=== PATIENT | male | born 1965 | race Caucasian/White ===

== ENCOUNTER 2022-08-01 03:37 | Inpatient (IN) | payer SELFPAY ==
[2022-08-01] MEDS ORDERED: Ondansetron PF 4 MG/2 ML Vial ONE ×2 (04:26→08:41)
[2022-08-01] MEDS ORDERED: Ketorolac Tromethamine 30 MG/ML VIAL ONE (04:26)
[2022-08-01 04:31] LABS: #Basophils 0.1 thou/uL (0.0-0.2); #Monocytes 1.1 thou/uL (0.11-0.59); #Neutrophils 12.7 thou/uL (1.40-6.50); %Basophils 0.3 % (0.0-1.0); %Eosinophils 0.2 % (0.0-10.0); %Monocytes 6.8 % (0.0-10.0); %Neutrophils 81.3 % (42.0-75.0); Hemoglobin 11.2 g/dL (14.0-18.0); Mean Corpuscular HGB CONC 31.5 g/dL (32.0-36.0); Mean Corpuscular Hemoglobin 25.5 pg (27.0-31.0); Mean Corpuscular Volume 80.7 fl (78.0-98.0); Platelet Count 419 10x3/uL (130-400); RBC Distribution Width 14.6 % (11.5-14.5); White Blood Cell (WBC) Count 15.6 10x3/uL (4.8-10.8)
[2022-08-01 04:46] LABS: Bilirubin Negative (Negative); Blood, Urine Large (Negative); Glucose, Urine (Dipstick) 100 mg/dL (Negative); Ketone, Urine Negative (Negative); Leukocyte Negative (Negative); Nitrite Negative (Negative); Protein, Urine (Dipstick) > or equal to 300 mg/dL (Neg-Trace); Specific Gravity, Urine 1.025 (1.005-1.030); Urobilinogen 0.2 mg/dL (Less than 2); pH, Urine 7.5 (5.0-9.0)
[2022-08-01 04:55] LABS: Clarity Turbid (Clear)
[2022-08-01 04:56] LABS: ALT (SGPT) 12 U/L (8-55); AST (SGOT) 17 U/L (5-34); Albumin 4.6 g/dL (3.5-5.0); Alkaline Phosphatase 75 U/L (40-110); Anion Gap 17 mmol/L (10-20); BUN (Urea Nitrogen) 17 mg/dL (8.4-25.7); Bilirubin, Total 0.6 mg/dL (0.2-1.2); CK (CPK) 203 U/L (30-200); Calc. Creatinine Clearance 0 mL/min (70-130); Calcium 9.7 mg/dL (7.8-10.44); Carbon Dioxide 22 mmol/L (22-29); Chloride 100 mmol/L (98-107); Estimated GFR 54; Glucose 133 mg/dL (70-105); Lipase 6 U/L (8-78); Potassium 3.6 mmol/L (3.5-5.1); Protein, Total 7.6 g/dL (6.0-8.3); Sodium 135 mmol/L (136-145)
[2022-08-01 05:05] LABS: Bacteria/HPF None Seen HPF (None Seen); CAUTI Indications for Culture Acute Hematuria; RBC/HPF Greater than 50 HPF (0-3); Squamous Epithelial None Seen HPF (0-3); WBC/HPF 0-3 HPF (0-3)
[2022-08-01 05:06] LABS: Urine Culture Reflex No No
[2022-08-01] MEDS ORDERED: Morphine 4 MG/ML VIAL ONE (06:37)
[2022-08-01 07:06] LABS: INR-International Normal Ratio 1.2; PTT 27.3 sec (22.9-36.1); Prothrombin Time 15.2 sec (12.0-14.7)
[2022-08-01] MEDS ORDERED: Fentanyl 250 MCG/5 ML VIAL ONE (08:13)
[2022-08-01] MEDS ORDERED: Dexmedetomidine 200 MCG/2 ML VIAL ONE (08:13)
[2022-08-01] MEDS ORDERED: CEFAZOLIN 2 GM VIAL ONE (08:20)
[2022-08-01] MEDS ORDERED: Sodium Chloride 0.9% 100 ML ONE (08:20)
[2022-08-01] MEDS ORDERED: Promethazine HCl 25 MG/ML VIAL IM PRN (08:24)
[2022-08-01] MEDS ORDERED: Ondansetron HCl/PF 4 MG/2 ML Vial IVP PRN (08:24)
[2022-08-01] MEDS ORDERED: ePHEDrine Sulfate 50 MG/10 ML VIAL ONE (08:41)
[2022-08-01] MEDS ORDERED: PROPOFOL 200 MG/20 ML VIAL ONE (08:41)
[2022-08-01] MEDS ORDERED: NEOSTIGMINE 3 MG/3 ML SYR 3 MG/3 ML SYRINGE ONE (08:41)
[2022-08-01] MEDS ORDERED: GLYCOPYRROLATE/PF 0.2 MG/ML VIAL ONE (08:41)
[2022-08-01] MEDS ORDERED: Metoclopramide HCl 10 MG/2 ML VIAL ONE (08:41)
[2022-08-01] MEDS ORDERED: Rocuronium Bromide 10 MG/ML (10ML VIAL) ONE (08:41)
[2022-08-01] MEDS ORDERED: Methylene Blue 50 MG/10 ML AMPUL ONE (10:25)
[2022-08-01] MEDS ORDERED: Rocuronium Bromide 50 MG/5 ML VIAL ONE (11:47)
[2022-08-01] MEDS ORDERED: Oxybutynin 5 MG TAB PO PRN (15:38)
[2022-08-01] MEDS ORDERED: HYDROcodone/Acetaminophen 10/325 mg Tablet PO PRN (15:38)
[2022-08-01] MEDS ORDERED: diphenhydrAMINE 50 MG/ML VIAL IVP PRN (15:38)
[2022-08-01] MEDS ORDERED: Acetaminophen 500 MG TAB PO PRN (15:38)
[2022-08-01] MEDS ORDERED: CEFAZOLIN 1 GM in Sodium Chloride 0.9% 100 ML IVPB SCH (16:00)
[2022-08-01 16:29] LABS: Hemoglobin 7.3 g/dL (14.0-18.0)
[2022-08-01 16:52] LABS: Anion Gap 12 mmol/L (10-20); BUN (Urea Nitrogen) 15 mg/dL (8.4-25.7); Calc. Creatinine Clearance 0 mL/min (70-130); Calcium 7.5 mg/dL (7.8-10.44); Carbon Dioxide 18 mmol/L (22-29); Chloride 110 mmol/L (98-107); Estimated GFR 84; Glucose 114 mg/dL (70-105); Potassium 4.1 mmol/L (3.5-5.1); Sodium 136 mmol/L (136-145)
[2022-08-01] MEDS: D5 0.9% NS w/ 20 mEq KCl 1,000 ML IV SCH ×2 (18:44→22:17)
[2022-08-01 18:50] VITALS: BMI 25.9
[2022-08-01] MEDS: CEFAZOLIN 1 GM in Sodium Chloride 0.9% 100 ML IVPB SCH (20:06)
[2022-08-02] MEDS: CEFAZOLIN 1 GM in Sodium Chloride 0.9% 100 ML IVPB SCH ×3 (05:14→21:09)
[2022-08-02 05:37] LABS: #Monocytes 0.9 thou/uL (0.11-0.59); #Neutrophils 7.7 thou/uL (1.40-6.50); %Basophils 0.3 % (0.0-1.0); %Eosinophils 0.4 % (0.0-10.0); %Lymphocytes 14.1 % (21.0-51.0); %Monocytes 8.5 % (0.0-10.0); %Neutrophils 76.5 % (42.0-75.0); Hemoglobin 6.1 g/dL (14.0-18.0); Mean Corpuscular HGB CONC 30.5 g/dL (32.0-36.0); Mean Corpuscular Hemoglobin 25.3 pg (27.0-31.0); Mean Platelet Volume 10.4 fL (7.4-10.4); Platelet Count 218 10x3/uL (130-400); RBC Distribution Width 14.9 % (11.5-14.5); Red Blood Cell (RBC) Count 2.41 mill/uL (4.70-6.10); White Blood Cell (WBC) Count 10.1 10x3/uL (4.8-10.8)
[2022-08-02 06:03] LABS: Anion Gap 8 mmol/L (10-20); BUN (Urea Nitrogen) 10 mg/dL (8.4-25.7); Calc. Creatinine Clearance 134 mL/min (70-130); Calcium 7.8 mg/dL (7.8-10.44); Carbon Dioxide 22 mmol/L (22-29); Chloride 111 mmol/L (98-107); Estimated GFR 100; Glucose 131 mg/dL (70-105); Potassium 3.6 mmol/L (3.5-5.1); Sodium 137 mmol/L (136-145)
[2022-08-02] MEDS: D5 0.9% NS w/ 20 mEq KCl 1,000 ML IV SCH (09:21)
[2022-08-02 21:01] VITALS: TEMP 99.3
[2022-08-02 21:20] VITALS: BP 111/66
== END 2022-08-02 22:25 | disposition home or self-care (01) | DRG 670 ==
LOC: ERS 03:37 → SDC 08:11 → SURG B 15:10
PROVIDERS: ADMIT Urology; ATTEND Urology
PROC: 0TBC8ZZ Excision of Bladder Neck, Via Natural or Artificial Opening Endoscopic (ICD-10-PCS; principal; 2022-08-01)
PROC: 30233N1 Transfusion of Nonautologous Red Blood Cells into Peripheral Vein, Percutaneous Approach (ICD-10-PCS; 2022-08-02)
DX: C67.9 Malignant neoplasm of bladder, unspecified (principal); R31.0 Gross hematuria; F17.210 Nicotine dependence, cigarettes, uncomplicated; N32.89 Other specified disorders of bladder; Z98.890 Other specified postprocedural states
CPT/HCPCS: 36415; 36430; 71045; 74018; 74176; 80048; 80053; 81001; 82550; 83690; 85025; 85610; 85730; 86850; 86900; 86901; 88307; 93005; 96374; 96375; C1769; J0690; J1885; J2270; J2405; J2704; J2765; J3010; J3480; J3490; P9016; Q9968